=== PATIENT | female | born 1960 | race Caucasian/White ===

== ENCOUNTER 2023-08-28 12:43 | Inpatient (IN) | payer BC, SELFPAY ==
[2023-08-27 14:27] VITALS: BMI 33.3
[2023-08-28] VITALS (25 sets, daily range): BP systolic 111–145; BP diastolic 61–85; PULSE 48–66; RESP 12–22; TEMP 36.3–37.2; O2SAT 95–100
--- NOTE | 2023-08-28 | ECHO_ITS ---
Patient Info Name: Marisa Chinchilla Age: 63 years : 1960 Gender: Female Ht: 65 in Wt: 200 lbs BSA: 2.07 m2 HR: 45 bpm Heart Rhythm: Sinus Rhythm, Bradycardia Technical Quality: Poor Exam Date: 08/28/2023 3:13 PM Exam Location: Echo Lab Patient Status: Inpatient Admit Date: 08/28/2023 Staff Ordering Physician: Heron Hedrick MD Block Inspector: Kae Bautista RDCS Attending Provider: Isabel Orellana MD ([email or web address]/robb) Exam Type: CA echo dop color flow w con Study Info Indications R93.1 - Abnormal findings on diagnostic imaging of heart and coronary circulation Complete two-dimensional, color flow and Doppler transthoracic echocardiogram is performed with contrast to opacify the left ventricle and to improve the deliniation of the left ventricle endocardial borders. Reason for Poor Study: poor patient cooperation Summary 1. Left ventricular chamber dimension is normal. 2. Left ventricular systolic function is normal, estimated at 65-70%. 3. There is mildly increased left ventricular wall thickness. 4. The left ventricular diastolic function is grade I diastolic dysfunction. 5. Right ventricular systolic function is normal. 6. There is mild aortic valve regurgitation. 7. There is mild mitral valve regurgitation. 8. There is mild to moderate tricuspid valve regurgitation. 9. Normal inferior vena cava with >50% collapse upon inspiration consistent with normal right atrial pressure, 3 mmHg. Left Ventricle Left ventricular chamber dimension is normal. Left ventricular systolic function is normal, estimated at 65-70%. There is mildly increased left ventricular wall thickness. The left ventricular diastolic function is grade I diastolic dysfunction. Right Ventricle Right ventricular chamber dimension is normal. Right ventricular systolic function is normal. Left Atria Left atrial chamber dimension is normal. Right Atria Right atrial chamber dimension is normal. Atrial Septum Intact interatrial septum visualized by color flow imaging. Aortic Valve The aortic valve is trileaflet. There is no aortic valve stenosis. There is mild aortic valve regurgitation. There is mild aortic valve calcification. Pulmonic Valve The pulmonic valve is not well visualized. There is trace pulmonic regurgitation. Mitral Valve There is mild mitral valve regurgitation. The mitral valve annulus is mildly calcified. Tricuspid Valve There is mild to moderate tricuspid valve regurgitation. Pericardium/Pleural There is no pericardial effusion. Inferior Vena Cava Normal inferior vena cava with >50% collapse upon inspiration consistent with normal right atrial pressure, 3 mmHg. Aorta The aortic root size at the sinus of Valsalva is normal. Left Ventricular Outflow Tract Name Value Normal LVOT 2D LVOT Diameter 2.08 cm LVOT Doppler LVOT Peak Gradient 6 mmHg LVOT Mean Gradient 3 mmHg LVOT VTI 26.75 cm LVOT VTI/AV VTI Ratio 0.86 LVOT Stroke Volume 90.52 ml LVOT CO 4.40 l/min LVOT CI 2.22 L/min/m2 Pulmonic Valve
[2023-08-28 08:58] LABS: Basophils Percent Auto 0.5 % (0.2-1.2); Eosinophils Absolute Auto 0.3 K/mm3 (0-0.3); Eosinophils Percent Auto 4.1 % (0-4.4); Hematocrit 43.4 % (37.0-47.0); Hemoglobin 14.4 g/dL (12.0-15.0); Immature Granulocyte Absolute 0.04 K/mm3 (0.00-0.031); Immature Granulocyte Percent A 0.5 % (0-0.5); Lymphocytes Absolute Auto 2.24 K/mm3 (0.9-3.2); Lymphocytes Percent Auto 30.6 % (18.3-44.2); Mean Corpuscular HGB Conc 33.2 g/dl (32-36); Mean Corpuscular Hemoglobin 31.4 pg (26-34); Mean Corpuscular Volume 94.6 fl (80-100); Mean Platelet Volume 10.1 fl (7.4-10.4); Monocytes Absolute Auto 0.6 K/mm3 (0.1-0.6); Monocytes Percent Auto 7.8 % (2.6-8.5); Neutrophils Absolute Auto 4.1 K/mm3 (1.3-6.7); Neutrophils Percent Auto 56.5 % (45.5-73.1); Platelet Count Result 209 k/mm3 (150-375); Red Blood Count 4.59 M/mm3 (4.2-5.4); Red Cell Distribution Width 13.2 % (11.5-14.5); White Blood Count 7.3 K/mm3 (4.5-10.0)
--- NOTE | 2023-08-28 09:00 | WPDHPUPDATE1 ---
History and Physical Update Update Date/Time: 08/28/23 09:00 History and Physical has been reviewed, including an updated exam of the patient. There are NO changes in the patient's condition. Risks, benefits, and alternatives have been discussed and questions answered. Patient agrees to proceed with procedure.
--- NOTE | 2023-08-28 09:01 | WPDMODSED ---
Moderate Sedation Note-Pt Data Patient Data Diagnosis: Coronary artery disease Present Complaint: Coronary artery disease Procedure to be performed/Plan: Coronary angiography, left heart cath, +/- PCI Allergies Allergy/AdvReac Type Severity Reaction Status Date / Time bacitracin AdvReac Intermediate Blister Verified 08/28/23 08:46 hydrocortisone AdvReac Intermediate Blister Verified 08/28/23 08:46 neomycin AdvReac Intermediate Blister Verified 08/28/23 08:46 polymyxin B AdvReac Intermediate Blister Verified 08/28/23 08:46 Sulfa (Sulfonamide AdvReac Intermediate Nausea and Verified 08/28/23 08:46 Antibiotics) Vomiting Home Medications Medication Instructions Recorded Confirmed Type aspirin 81 mg tablet 81 mg PO DAILY 08/27/23 08/28/23 History cholecalciferol (vitamin D3) 25 2,000 unit PO DAILY 08/27/23 08/27/23 History mcg (1,000 unit) tablet (Vitamin D3) diltiazem HCl 60 mg tablet 60 mg PO BID 08/27/23 08/28/23 History evolocumab 140 mg/mL subcutaneous 140 mg subcut [id number] 08/27/23 08/27/23 History pen injector (Repatha SureClick) ibuprofen 200 mg tablet 200 mg PO Q6-8H PRN Pain, Mild 08/27/23 08/27/23 History insulin degludec 100 unit/mL (3 50 unit subcut HS 08/27/23 08/27/23 History mL) subcutaneous pen (Tresiba FlexTouch U-100 insulin) metoprolol succinate 25 mg 25 mg PO HS 08/27/23 08/27/23 History tablet,extended release 24 hr nitroglycerin 0.4 mg sublingual 0.4 mg sublingual Q5MIN PRN Chest 08/27/23 08/27/23 History tablet Pain omeprazole 40 mg capsule,delayed 40 mg PO BID 08/27/23 08/28/23 History release potassium chloride 10 mEq 10 meq PO DAILY 08/27/23 08/28/23 History tablet,extended release(part/cryst) sitagliptin phosphate 100 mg 100 mg PO DAILY 08/27/23 08/27/23 History tablet (Januvia) Current Medications: Active Medications Sodium Chloride (Normal Saline Iv) 500 mls @ 100 mls/hr IV CONT .Q5H ALESSANDRO Sedation/Anesthesia: No previous sedation/anesthesia problems (including family history). [facility] Social History Social History Smoking packs per day: 2 Smoking cigarettes per day: 40.0 Smoking status: Former smoker Tobacco type: cigarettes Alcohol intake: former Alcohol use details: none for 30 yrs Substance use: former Substance use type: crack/cocaine Last use: 06/20/2007 Living arrangements: with family Spiritual care concerns: No Mod Sed Physical Exam Physical Exam Pre Procedural Exam: Normal: Appearance, Lungs, Heart Rate, Heart Rhythm, Neuro Exam, Extremities and Skin and Variation: Abdomen (Central obesity ) Hours since solid foods: 12 Hours since liquid intake: 8 Mallampati Classification: class III Internal Medicine - PN: Obj Da Vital Signs Vital Signs: Vital Signs - 24 hr 08/28/23 08:50 Temperature 37.2 C Pulse Rate 63 Respiratory Rate 16 Blood Pressure 145/73 H Pulse Oximetry 97 Oxygen Delivery Room Air Meds/Results Medications: Active Medications Generic Name Dose Route Start Last Admin Trade Name Freq PRN Reason Stop Dose Admin Sodium Chloride 500 mls @ 100 mls/hr 08/28/23 08:30 Normal Saline Iv IV CONT .Q5H ON LICENSE OF [facility] Labs 08/28/23 08:48 08/28/23 08:48 ASA Classification/Sedation ASA Classification/Sedation ASA Class: II Emergent: No Risks: Risks, benefits and alternatives explained and patient/family accepted plan for sedation. Patient re-evaluated immediately prior to sedation.
--- NOTE | 2023-08-28 09:01 | WPDCARDPROC ---
Cardiac Cath Procedure Note Date of procedure:: 08/28/23 Performing physician:: CATHETERIZATION LABORATORY REPORT Procedure Date: 08/28/2023 Black Powder Glazing Operator: Isabel Orellana M.D., [facility]? Referring Physician: Jesús Amaya M.D. ? Anesthesia: Versed and Fentanyl were ordered and given in my presence at 10:37, procedure ended at 12:11. Supervision of nurse monitored moderate sedation with Versed and Fentanyl was provided for 94 minutes. Total of Versed 2.5mg, Fentanyl 125mcg, Morphine 4mg IV were administered by the Weighbridge Operator RN Elizabeth Tanner. Pre-op Diagnosis: Coronary artery disease Post-op Diagnosis: The ostial LAD has mild disease. The proximal LAD has a moderate 50-60% stenosis. The proximal RCA has a moderate stenosis and the distal RCA has a mild-moderate in-stent restenosis. IFR and IVUS evaluation done of the proximal LAD lesion. IFR was positive at 0.82 (Positive. Pathological is <0.89). There was mild ostial LAD disease as well, approximately a 40% stenosis on IVUS evaluation. After IFR and IVUS evaluation of the lesion, we were about to conclude the procedure (with plans for staged PCI). The IFR wire was removed, and on angiogram, there was haziness in the LAD with slow flow. On the UZMA CAUDAL views there was haziness in ostial-proximal Ramus as well (concern for either dissection vs thrombus). Patient developed severe chest pain and EKG changes with this. The LAD was rewired. IVUS catheter advanced in the LAD. Did not show any evidence of dissection. The wire was then advanced into the Ramus. IVUS evaluation of the Ramus showed thrombus. At this time, Angiomax drip was still running. Integrilin bolus and drip started. Penumbra catheter advanced into the Ramus and aspiration thrombectomy performed with removal of a large clot. Subsequent angiogram showed a significant improvement with no residual thrombus in the Ramus or in the proximal LAD. The distal LAD was occluded, likely due to distal embolization of the thrombus. Given the very small caliber vessel at that point in the distal LAD, I decided not to pursue that with aspiration thrombectomy. Will treat medically with Integrilin x 18 hours. NTG drip started for chest pain, which had then started to improve. Admit to the ICU post-cath. Procedure(s): 1. Moderate sedation 2. Ultrasound-guided access of the right radial artery 3. Coronary angiography 4. IFR of the LAD 5. IVUS of the LAD 6. Aspiration thrombectomy of the Ramus Access Site: Right radial artery Brief History and Clinical Indications: Patient is a 63 year old female with CAD s/p stents who is referred for [facility] for abnormal CCTA. All risks, benefits and alternatives to left heart catheterization with or without percutaneous coronary intervention was discussed at length with the patient. Risk of complications including but not limited to bleeding, infection, arrhythmia, stroke, worsening kidney function, blood loss, groin hematoma, limb loss, emergency coronary artery bypass grafting, and even were discussed with the patient and all questions were answered. The patient understood and wished to proceed. Time out called, patient name, date of , medical record number, allergies, procedure performed, identify Black Powder Glazing Operator, patient and staff member concurred with accurate data, procedure carried on. Findings: LEFT HEART CATHETERIZATION FINDINGS: 1. Left main: The left main coronary artery is widely patent without any significant obstructive disease. The left main is a long vessel. 2. Left anterior descending: The ostial LAD has mild disease. The proximal LAD has a moderate 50-60% stenosis followed by mild disease. The mid LAD has luminal irregularities. The distal LAD is of very small caliber vessel. Diagonal vessel has luminal irregularities. 3. Ramus: Ramus has luminal irregularities. 4. Left circumflex: The left circumflex artery is a small caliber vessel and is diminutive. 5. Right coronary fanny
[2023-08-28 09:08] LABS: Anion Gap 9 mmol/L (4-12); Blood Urea Nitrogen 17 mg/dL (7-17); Calcium 9.6 mg/dL (8.4-10.2); Carbon Dioxide 24 mmol/L (22-30); Chloride 106 mmol/L (98-107); Estimated CRCL calculation 69 ml/min; Estimated Glomerular Filt Rate > 60; Glucose 94 mg/dL (65-110); Potassium 4.1 mmol/L (3.4-5.0); Sodium 139 mmol/L (137-145)
--- NOTE | 2023-08-28 12:37 | WPDCNINT ---
Assessment and Plan Assessment and plan (1) Coronary artery thrombosis: Code(s): I24.0 - Acute coronary thrombosis not resulting in myocardial infarction Status: Acute Assessment and Plan: Patient has history of coronary disease status post PCI in the past Underwent catheterization today which did not show any significant obstructive coronary disease requiring intervention but during procedure she developed thrombus of ramus dating chest pain Now status post aspiration of thrombus Continue eptifibatide infusion as per cardiology Double antiplatelet therapy the foam aspirin and Brilinta Check echocardiogram ICU telemetry monitoring Nitroglycerin infusion and p.r.n. morphine Catheterization site monitoring Beta-yanelis will be resumed as hemodynamics allow (2) Chest pain: Code(s): R07.9 - Chest pain, unspecified Status: Acute Assessment and Plan: See above (3) Coronary artery disease: Code(s): I25.10 - Atherosclerotic heart disease of [place] coronary artery without angina pectoris Status: Acute Assessment and Plan: See above (4) Diabetes mellitus: Code(s): E11.9 - Type 2 diabetes mellitus without complications Status: Acute Assessment and Plan: Continue sliding scale insulin. npo at this time. Hold Tresiba for now (5) Barretts esophagus: Code(s): K22.70 - Ahn's esophagus without dysplasia Status: Acute Assessment and Plan: Continue PPI (6) COPD (chronic obstructive pulmonary disease): Code(s): J44.9 - Chronic obstructive pulmonary disease, unspecified Status: Acute Assessment and Plan: Bronchodilators Plan DVT prophylaxis -patient currently on eptifibatide infusion. SCDs. Will hold further anticoagulation Nutrition -npo Code Status -patient wishes to be Full Code Case discussed with Cardiology Dr. Orellana I spoke to patient and patient's Total Critical Care Time - 30 minutes Due to a high probability of clinically significant, life threatening deterioration, the patient required my highest level of preparedness to intervene emergently and I personally spent this critical care time directly and personally managing the patient. This critical care time included obtaining a history; examining the patient; pulse oximetry; ordering and review of studies; arranging urgent treatment with development of a management plan; evaluation of patient's response to treatment; frequent reassessment; and discussions with other providers. It was exclusive of separately billable procedures and treating other patients and teaching time. Please see Assessment and Plan section and the rest of the note for further information on patient assessment and treatment Warehouse Attendant Consult Note Consult date: 08/28/23 Reason for consult: Chest pain, coronary artery thrombus HPI: Marisa Chinchilla is a 63 year old female with past medical history of coronary disease status post PCI and stent placement in the past, diabetes mellitus, COPD, peripheral arterial disease, hyperlipidemia, hypertension was admitted today for an outpatient cardiac catheterization procedure. Patient had abnormal CT scan as an outpatient and was referred for an outpatient cardiac catheterization. Cardiac catheterization showed left main coronary artery was patent without any significant obstructive disease. But during the procedure patient developed spontaneous thrombosis off ramus leading to chest pain. Patient underwent aspiration of thrombus and started on Integrilin and nitroglycerin infusion. Patient is now being admitted to ICU for closer hemodynamic monitoring. Patient at this time states that she is having chest pain which she rates at 4/10, in the middle of chest, pressure in cough, constant with no radiation. She states the pain was severe 10 of 10 but now improved to 4/10. Pain is associated with shortness of breath which is mild. Review of system was al
--- NOTE | 2023-08-28 13:10 | PC.NURSE ---
This patient, Marisa Chinchilla, was admitted to Intensive Care Unit-7. Patient/family oriented to hospital policies and general routines including ID bracelet, bed and alarms, visiting hours, pain management, procedures, bathroom and other care routines, personal items, smoking policy, room service/diet, and visiting hours. Information on how to activate the Rapid Response Team has been discussed. Patient/Family are encouraged to report perceived risks to care and to ask questions if they do not understand what they are told or what they should do.
--- NOTE | 2023-08-28 13:12 | PM.IMHP ---
H&P: HPI History of Present Illness Date/Time: 08/28/23 13:12 Chief Complaint: Outpatient cardiac catheterization. Narrative: Patient is a 67 year old female with CAD s/p prior RCA stents, hypertension, hyperlipidemia, type 2 diabetes mellitus, COPD and PAD who was referred for outpatient cardiac catheterization in setting of atypical chest pain and abnormal CCTA. Due to complication during cardiac catheterization, patient admitted to the ICU afterwards. Review of Systems Review of Systems: All systems reviewed & are unremarkable except as noted in HPI and below (HPI) [facility] Past Medical History Medical History Coronary artery disease Surgical History Surgical History History of coronary artery stent placement Social History Social History Smoking packs per day: 2 Smoking cigarettes per day: 40.0 Smoking status: Former smoker Tobacco type: cigarettes Alcohol intake: former Alcohol use details: none for 30 yrs Substance use: former Substance use type: crack/cocaine Last use: 06/20/2007 Living arrangements: with family Spiritual care concerns: No Meds Home Medications and Allergies Home Medications Medication Instructions Recorded Confirmed Type aspirin 81 mg tablet 81 mg PO DAILY 08/27/23 08/28/23 History cholecalciferol (vitamin D3) 25 2,000 unit PO HS 08/27/23 08/28/23 History mcg (1,000 unit) tablet (Vitamin D3) diltiazem HCl 60 mg tablet 60 mg PO BID 08/27/23 08/28/23 History evolocumab 140 mg/mL subcutaneous 140 mg subcut [id number] 08/27/23 08/27/23 History pen injector (Repchandrakant SureClick) ibuprofen 200 mg tablet 200 mg PO Q6-8H PRN Pain, Mild 08/27/23 08/27/23 History insulin degludec 100 unit/mL (3 50 unit subcut HS 08/27/23 08/27/23 History mL) subcutaneous pen (Tresiba FlexTouch U-100 insulin) metoprolol succinate 25 mg 25 mg PO HS 08/27/23 08/27/23 History tablet,extended release 24 hr nitroglycerin 0.4 mg sublingual 0.4 mg sublingual Q5MIN PRN Chest 08/27/23 08/27/23 History tablet Pain omeprazole 40 mg capsule,delayed 40 mg PO BID 08/27/23 08/28/23 History release potassium chloride 10 mEq 10 meq PO DAILY 08/27/23 08/28/23 History tablet,extended release(part/cryst) sitagliptin phosphate 100 mg 100 mg PO DAILY 08/27/23 08/27/23 History tablet (Januvia) Allergies Allergy/AdvReac Type Severity Reaction Status Date / Time bacitracin AdvReac Intermediate Blister Verified 08/28/23 08:46 hydrocortisone AdvReac Intermediate Blister Verified 08/28/23 08:46 neomycin AdvReac Intermediate Blister Verified 08/28/23 08:46 polymyxin B AdvReac Intermediate Blister Verified 08/28/23 08:46 Sulfa (Sulfonamide AdvReac Intermediate Nausea and Verified 08/28/23 08:46 Antibiotics) Vomiting Vital Signs Vital Signs - 24 hr 08/28/23 08:50 Temperature 37.2 C Pulse Rate 63 Respiratory Rate 16 Blood Pressure 145/73 H Pulse Oximetry 97 Oxygen Delivery Room Air Exam Const: General: in distress mild HENMT: Mouth: Yes moist mucous membranes Eyes: General: appearance normal, both eyes and all related structures Sclera: sclerae normal Resp: Effort & Inspection: normal respiratory effort Cardio: Rate: regular rate Rhythm: regular rhythm Skin: General skin exam: normal color Neuro: Speech: normal speech Psych: Mental Status: mental status grossly normal Affect: normal affect H&P: Results Labs Labs: Short CBC 08/28/23 Range/Units 08:48 WBC 7.3 (4.5-10.0) K/mm3 Hgb 14.4 (12.0-15.0) g/dL Hct 43.4 (37.0-47.0) % Plt Count 209 (150-375) k/mm3 BMP 08/28/23 08:48 Sodium 139 Potassium 4.1 Chloride 106 Carbon Dioxide 24 BUN 17 Creatinine 0.80 Glucose 94 Calcium 9.6 Assessment and Plan Assessment and plan (1) Coronary artery disease:
[2023-08-28] MEDS: NITROGLYCERIN/D5W 200 MCG/ML 50 MG/250 ML BTL IV CONT (13:15)
[2023-08-28] MEDS: EPTIFIBATIDE 0.75 MG/ML 75 MG/100 ML VIAL 14.56 MG IV CONT ×2 (13:15→16:54)
[2023-08-28] MEDS: MORPHINE SULFATE (*CRX) 2 MG/ML INJ IV PUSH (13:24)
[2023-08-28 13:35] LABS: Glucose Point of Care 104 mg/dl (65-105)
[2023-08-28] MEDS: SODIUM CHLORIDE 0.9% IV 1,000 ML 125 ML IV CONT (13:49)
[2023-08-28] MEDS: ONDANSETRON INJ 4 MG/2 ML VIAL IV PUSH (15:31)
[2023-08-28 16:38] LABS: Glucose Point of Care 105 mg/dl (65-105)
[2023-08-28] MEDS: PERFLUTREN LIPID MICROSPHERES 1.5 ML VIAL DILUTED TO 10 ML TOTAL VOLUME IV PUSH (16:58)
--- NOTE | 2023-08-28 16:59 | IVDEFINITY ---
Prior to administration of IV Definity the patient was educated on the risks and benefits of the imaging enhancing agent including potential adverse side effects. The patient verbalized understanding. Allergies were verified. No exclusion criteria were identified and at least one of the following inclusion criteria were met: 1) physician request, 2) patient technically difficult to image (per the [place] [employer]ocardi[employer] guidelines of two or more segments not discernable within the apical view), or 3) questionable left ventricular function. ?
[2023-08-28 18:08] LABS: Troponin I 0.235 ng/mL (0.000-0.034)
[2023-08-28] MEDS: PANTOPRAZOLE 40 MG TABLET PO (21:26)
[2023-08-28 21:54] LABS: Glucose Point of Care 105 mg/dl (65-105)
[2023-08-29] VITALS (12 sets, daily range): BP systolic 108–133; BP diastolic 58–65; PULSE 50–72; RESP 15–21; TEMP 36.6–36.9; O2SAT 92–98
[2023-08-29] MEDS: EPTIFIBATIDE 0.75 MG/ML 75 MG/100 ML VIAL 14.56 MG IV CONT (00:44)
--- NOTE | 2023-08-29 07:00 | ECG_ITS ---
Test Date: 2023-08-29 08:53:19 Measurements Intervals [place] Rate: 65 P: 22 VA: 158 QRS: 6 QRSD: 103 T: 33 QT: 347 QTc: 363 Interpretive Statements SINUS RHYTHM DELAYED PRECORDIAL R/S TRANSITION VOLTAGE CRITERIA FOR LVH NONSPECIFIC T-WAVE ABNORMALITY- ANTERIOR LEADS BASELINE ARTIFACT- I, II, III, AVR, AVL, AVF BORDERLINE ECG No previous ECG available for comparison Electronically Signed On 08-29-2023 08:54:31 CDT by Gallo Briggs D.O.
[2023-08-29 07:58] LABS: Hematocrit 39.4 % (37.0-47.0); Hemoglobin 13.3 g/dL (12.0-15.0); Mean Corpuscular HGB Conc 33.8 g/dl (32-36); Mean Corpuscular Hemoglobin 31.7 pg (26-34); Mean Corpuscular Volume 93.8 fl (80-100); Mean Platelet Volume 10.4 fl (7.4-10.4); Platelet Count Result 206 k/mm3 (150-375); Red Cell Distribution Width 13.2 % (11.5-14.5); White Blood Count 12.2 K/mm3 (4.5-10.0)
[2023-08-29 08:02] LABS: Glucose Point of Care 97 mg/dl (65-105)
[2023-08-29] MEDS: ASPIRIN 81 MG ENTERIC TABLET PO (08:04)
[2023-08-29] MEDS: PANTOPRAZOLE 40 MG TABLET PO (08:04)
[2023-08-29] MEDS: CLOPIDOGREL BISULFATE 75 MG TABLET PO (08:04)
[2023-08-29] MEDS: METOPROLOL SUCCINATE EXT REL 12.5 MG TABCR PO (08:12)
[2023-08-29 08:17] LABS: Alanine Aminotransferase 24 U/L (6-35); Albumin Level 4.3 g/dL (3.5-5.1); Alkaline Phosphatase 101 U/L (38-126); Anion Gap 9 mmol/L (4-12); Aspartate Amino Transferase 66 U/L (14-36); Bilirubin,Total 0.7 mg/dL (0.2-1.3); Blood Urea Nitrogen 11 mg/dL (7-17); Calcium 9.4 mg/dL (8.4-10.2); Carbon Dioxide 22 mmol/L (22-30); Chloride 107 mmol/L (98-107); Estimated CRCL calculation 78 ml/min; Estimated Glomerular Filt Rate > 60; Glucose 107 mg/dL (65-110); Magnesium 1.7 mg/dL (1.6-2.3); Potassium 3.7 mmol/L (3.4-5.0); Sodium 138 mmol/L (137-145)
--- NOTE | 2023-08-29 08:30 | WPDINTPN ---
Progress Note: A&P Assessment and Plan (1) Coronary artery thrombosis: Code(s): I24.0 - Acute coronary thrombosis not resulting in myocardial infarction Status: Acute Assessment and Plan: Patient has history of coronary disease status post PCI in the past Underwent catheterization today which did not show any significant obstructive coronary disease requiring intervention but during procedure she developed thrombus of ramus dating chest pain Now status post aspiration of thrombus Patient completed eptifibatide infusion as per cardiology Continue Double antiplatelet therapy the foam aspirin and Brilinta Pending echocardiogram Continue telemetry monitoring Chest pain appears to have resolved and I will discontinue Nitroglycerin infusion and monitor Catheterization site exam as above Beta-yanelis will be resumed at a low dose (2) Chest pain: Code(s): R07.9 - Chest pain, unspecified Status: Acute Assessment and Plan: Resolved at this time (3) Coronary artery disease: Code(s): I25.10 - Atherosclerotic heart disease of [place] coronary artery without angina pectoris Status: Acute Assessment and Plan: See above (4) Diabetes mellitus: Code(s): E11.9 - Type 2 diabetes mellitus without complications Status: Acute Assessment and Plan: Continue sliding scale insulin. Diet ordered. Tresiba is on hold (5) Barretts esophagus: Code(s): K22.70 - Ahn's esophagus without dysplasia Status: Acute Assessment and Plan: Continue PPI (6) COPD (chronic obstructive pulmonary disease): Code(s): J44.9 - Chronic obstructive pulmonary disease, unspecified Status: Acute Assessment and Plan: Bronchodilators Plan DVT prophylaxis -I anticipate patient will ambulate today Nutrition -diet ordered Code Status -patient wishes to be Full Code Transfer out of ICU today Subjective Date/time seen: 08/29/23 Overnight events reviewed. Afebrile Continues to be on low-dose of nitroglycerin infusion at 10 mics Off eptifibatide infusion Feels much better this morning and denies any chest pain. Denies nausea and is going to eat breakfast Patient denies fever, chest pain, shortness of breath, cough, nausea vomiting, abdominal pain,, diarrhea, headache or constipation.. All other systems were reviewed and were negative NSR on monitor Other Vitals acceptable Review of Systems Review of Systems: All systems reviewed & are unremarkable except as noted in HPI and below (HPI) Exam Narrative: General: Pt is alert awake and in NAD Lungs/Chest: Trachea central Clear BS B/L, No crackles or wheezing. Cardiac: RRR. Normal S1 S2. No murmurs Circulation: Pedal pulses are intact and symmetrical. Right radial pulse palpable. Right hand is warm and cap refill normal Abdomen: Normal bowel sounds.. Soft. NT. ND. Extremities: No clubbing, cyanosis or edema. Warm : Tony in place Neurologic: Follows commands. Moves all 4 extremities PERRL AO x3 Skin: No Rash Objective Data Vital Signs Vital Signs: Vital Signs - 24 hr 08/28/23 08:50 08/28/23 13:15 08/28/23 13:26 Temperature 37.2 C Pulse Rate 63 51 L 52 L Pulse Rate [Right Radial Palpation] Respiratory Rate 16 Blood Pressure 145/73 H 137/85 133/71 Pulse Oximetry 97 Oxygen Delivery Room Air Oxygen Flow Rate 08/28/23 13:15 08/28/23 13:22 08/28/23 14:00 Temperature Pulse Rate 48 L 48 L Pulse Rate [Right Radial Palpation] Respiratory Rate 18 16 Blood Pressure 133/71 127/61 Pulse Oximetry 97 97 96 Oxygen Delivery Nasal Cannula Oxygen Flow Rate 2 08/28/23 14:00 08/28/23 14:30 08/28/23 13:30 Temperature Pulse Rate 49 L 53 L 51 L Pulse Rate [Right Radial Palpation] Respiratory Rate 22 H 14 Blood Pressure 121/62 111/75 Pulse Oximetry 95 98 Oxygen Delivery Oxygen Flow Rate 08/28/23 13:45 08/28/23 14:00 08/28/23 15:00 Temperature
--- NOTE | 2023-08-29 08:51 | PM.DS ---
DS: Admitting Diagnosis Discharge Date 08/29/2023 Admitting Diagnosis Coronary artery disease DS: Summary Hospital Course Hospital Course: Patient presented on 08/27 for an elective outpatient cardiac catheterization. Cardiac catheterization showed: The ostial LAD has mild disease. The proximal LAD has a moderate 50-60% stenosis. The proximal RCA has a moderate stenosis and the distal RCA has a mild-moderate in-stent restenosis. IFR and IVUS evaluation done of the proximal LAD lesion. IFR was positive at 0.82 (Positive. Pathological is <0.89). There was mild ostial LAD disease as well, approximately a 40% stenosis on IVUS evaluation. After IFR and IVUS evaluation of the lesion, we were about to conclude the procedure (with plans for staged PCI). The IFR wire was removed, and on angiogram, there was haziness in the LAD with slow flow. On the [employer] views there was haziness in ostial-proximal Ramus as well. Patient developed severe chest pain and EKG changes with this. The LAD was rewired. IVUS catheter advanced in the LAD. Did not show any evidence of dissection. The wire was then advanced into the Ramus. IVUS evaluation of the Ramus showed thrombus. At this time, Angiomax drip was still running. Integrilin bolus and drip started. Penumbra catheter advanced into the Ramus and aspiration thrombectomy performed with removal of a large clot. Subsequent angiogram showed a significant improvement with no residual thrombus in the Ramus or in the proximal LAD. The distal LAD was occluded, likely due to distal embolization of the thrombus. Given the very small caliber vessel at that point in the distal LAD, decided not to pursue that with aspiration thrombectomy. She was admitted to the ICU for medical management. Treated medically with Integrilin drip x 18 hours. NTG drip for chest pain, which was weaned off. Started dual antiplatelet therapy as well with ASA and Plavix. Patient's chest pain resolved overnight and otherwise was doing well prior to discharge. Status at Discharge Cognitive/behavioral status at discharge: Stable Functional status at discharge: independent ambulation Overall status at discharge: patient is back to baseline Time Spent with Patient Time attestation: Total time spent providing and/or coordinating discharge services: Exam Const: General: comfortable and no acute distress HENMT: Mouth: Yes moist mucous membranes Eyes: General: appearance normal, both eyes and all related structures Sclera: sclerae normal Resp: Effort & Inspection: normal respiratory effort Cardio: Rate: regular rate Rhythm: regular rhythm Skin: General skin exam: normal color Psych: Mental Status: mental status grossly normal Affect: normal affect DS: Data Data Completed and Pending Labs on day of discharge: Labs from last 24 hours 08/29/23 08/29/23 08/28/23 07:52 07:48 22:51 WBC 12.2 H RBC 4.20 Hgb 13.3 Hct 39.4 MCV 93.8 MCH 31.7 MCHC 33.8 RDW 13.2 Plt Count 206 MPV 10.4 Immature Gran % (Auto) Neut % (Auto) Lymph % (Auto) [place] % (Auto) Eos % (Auto) Baso % (Auto) Lymph # (Auto) [place] # (Auto) Eos # (Auto) Baso # (Auto) Abs Immat Gran (auto) Absolute Neuts (auto) Absolute Nucleated RBC Nucleated RBC % Sodium 138 Potassium 3.7 Chloride 107 Carbon Dioxide 22 Anion Gap 9 BUN 11 D Creatinine 0.70 Estim Creat Clear Calc 78 Estimated GFR > 60 Glucose 107 POC Capillary Glucose 97 Calcium 9.4 Magnesium 1.7 Total Bilirubin 0.7 AST 66 H ALT 24 Alkaline Phosphatase 101 Troponin I 4.760 H* D Total Protein 7.0 Albumin 4.3 08/28/23 08/28/23 08/28/23 21:22 20:09 17:17 WBC RBC Hgb Hct MCV MCH MCHC RDW Plt Count MPV Immature Gran % (Auto) Neut % (Auto) Lymph % (Auto) [place] % (Auto) Eos % (Auto) Baso % (Auto) Lymph # (Auto) [place] # (
== END 2023-08-29 10:50 | disposition home or self-care (01) | DRG 251 ==
LOC: ANHICU 13:14
PROVIDERS: Internal Medicine; Admitting Provider Internal Medicine; PCP Family Medicine; Visit Provider Internal Medicine
PROC: 02C03ZZ Extirpation of Matter from Coronary Artery, One Artery, Percutaneous Approach (ICD-10-PCS; CPT 93454; principal; 2023-08-28 10:00)
PROC: 4A033BC Measurement of Arterial Pressure, Coronary, Percutaneous Approach (ICD-10-PCS; CPT 93571; 2023-08-28 10:00)
PROC: 02C03ZZ Extirpation of Matter from Coronary Artery, One Artery, Percutaneous Approach (ICD-10-PCS; 2023-08-28 10:00)
PROC: 02C03ZZ Extirpation of Matter from Coronary Artery, One Artery, Percutaneous Approach (ICD-10-PCS; CPT 92979; 2023-08-28 10:00)
PROC: 02C03ZZ Extirpation of Matter from Coronary Artery, One Artery, Percutaneous Approach (ICD-10-PCS; CPT 92973; 2023-08-28 10:00)
DX: I24.0 Acute coronary thrombosis not resulting in myocardial infarction (principal); T82.855A Stenosis of coronary artery stent, initial encounter; I25.10 Atherosclerotic heart disease of native coronary artery without angina pectoris; E11.9 Type 2 diabetes mellitus without complications; K22.70 Barrett's esophagus without dysplasia; J44.9 Chronic obstructive pulmonary disease, unspecified; I73.9 Peripheral vascular disease, unspecified; I10 Essential (primary) hypertension; E78.5 Hyperlipidemia, unspecified; Z95.5 Presence of coronary angioplasty implant and graft; Z87.891 Personal history of nicotine dependence
CPT/HCPCS: 36415; 80048; 80053; 82948; 83735; 84484; 85025; 85027; 92973; 92978; 92979; 93005; 93454; 93571; A9270; C1753; C1757; C1769; C1887; C1894; C8929; J0583; J1327; J1644; J2250; J2270; J2305; J2371; J2405; J3010; J7030; J7040; Q9957